=== PATIENT | female | born 1985 | race Caucasian/White ===

== ENCOUNTER 2018-02-02 16:05 | Inpatient (IN) ==
[2018-02-02] MEDS ORDERED: 0.9 % Sodium Chloride 1,000 ML IVC ONE ×4 (16:29→16:59)
--- NOTE | 2018-02-02 16:35 | Emergency Department Note ---
Disposition Clinical Impression: Axillary hidradenitis suppurativa, Tachycardia Sepsis Qualifiers: Sepsis type: sepsis due to unspecified organism Qualified Code(s): A41.9 - Sepsis, unspecified organism Cellulitis Qualifiers: Site of cellulitis: extremity Site of cellulitis of extremity: axilla Laterality: left Qualified Code(s): L03.112 - Cellulitis of left axilla Disposition: Admitted As Inpatient Condition: Good Time of Disposition: 17:12 Arrhythmia/Palpitations HPI - General Chief Complaint: ED Arrhythmia/Palpitations Stated Complaint: high HR Time Seen by Provider: 02/02/18 16:12 Source: patient, family Mode of arrival: ambulatory Limitations: no limitations Nursing Notes Reviewed: Yes Vital Signs Reviewed: Yes - History of Present Illness HPI Narrative: Patient notes a baseline tachycardia of about 110 bpm but increasing tachycardia and palpitations since this morning. She notes chills and diaphoresis without objective fever. She notes nausea, upset stomach, diarrhea. 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 She was recently prescribed colchicine - Related Data Home Medications Medication Instructions Recorded Confirmed Glimepiride [Amaryl] 4 mg PO BID 08/05/15 02/02/18 Metformin HCl [Glucophage] 1,000 mg PO BID 01/01/16 02/02/18 Lisinopril [Zestril] 20 mg PO DAILY 03/23/17 02/02/18 predniSONE [Prednisone] 15 mg PO DAILY 03/23/17 02/02/18 Atorvastatin [Lipitor] 40 mg PO HS 08/04/17 02/02/18 Bimatoprost [Lumigan] 1 drop OP 08/04/17 02/02/18 Calcium Carbonate [Calcium] 500 mg PO DAILY 08/04/17 02/02/18 Dronabinol [Marinol] 5 mg PO BID 08/04/17 02/02/18 Dulaglutide [Trulicity] 0.5 mg SQ QWEEK 08/04/17 02/02/18 Omeprazole [PriLOSEC] 20 mg PO DAILY 08/04/17 02/02/18 Oxycodone HCl/Acetaminophen 1 tab PO Q6H PRN 08/04/17 02/02/18 [Percocet 5-325 mg Tablet] BuPROPion XL (24 HR) [Wellbutrin 150 mg PO DAILY 02/02/18 02/02/18 Xl] Colchicine [Colcrys] 0.6 mg PO DAILY 02/02/18 02/02/18 Cyclobenzaprine HCl 10 mg PO HS PRN 02/02/18 02/02/18 Ergocalciferol (VITAMIN D2) 50,000 unit PO QWEEK 02/02/18 02/02/18 [Vitamin D2] Triamcinolone Acet 0.1% CRM 1 appl TP BID 02/02/18 02/02/18 [Kenalog] Previous Rx's Medication Instructions Recorded Clindamycin HCl 300 mg PO QID 7 Days #28 capsule 02/03/18 Allergies Allergy/AdvReac Type Severity Reaction Status Date / Time Sulfa (Sulfonamide Allergy Swelling Verified 02/02/18 16:12 Antibiotics) of Lip/Tongue/Throat All systems ED: reviewed and negative except as stated. Constitutional: Reports: chills Eyes: Reports: as per HPI ENT ED: Reports: as per HPI Cardiovascular: Reports: as per HPI Respiratory: Reports: as per HPI Gastrointestinal: Reports: nausea, diarrhea Genitourinary: Reports: as per HPI Musculoskeletal: Reports: as per HPI Integumentary: Reports: rash Neurological: Reports: as per HPI Psychiatric: Reports: as per HPI Endocrine: Reports: as per HPI Hematological/Lymphatic: Reports: as per HPI Allergic/Immunologic: Reports: as per HPI Past Medical History - Past Medical History Source: patient Medical history: Reports: diabetes, hypertension, renal disease Psychiatric history: Reports: anxiety, depression UTILITY PORTER history: Reports: no UTILITY PORTER history - Social History Smoking Status: Never smoker Smokeless Tobacco Status: No Alcohol use: Reports: rarely Drug use: Reports: marijuana Physical Exam - General Limitations: no limitations General appearance: alert - Head Head exam: atraumatic - Eye Eye exam: Present: normal appearance - ENT ENT exam: normal exam - Neck Neck exam: Present: normal inspection, full ROM - Chest Chest inspection: Present: normal inspection, symmetric chest wall rise - Respiratory Respiratory exam: Present: normal lung sounds bilaterally - Cardiovascular Cardiovascular exam: Present: tachycardia, normal heart sounds - Abdominal Exam Abdominal exam: Present: soft, Non-Tender - Neurological Exam Neurological exam: Present: alert, oriented X3, CN II-XII intact - Psychiatric Psychiatric exam: Present: normal affect, normal mood - Skin Skin exam: Present: warm, diaphoresis, other (superficial ulcerative lesions to bilateral LE. Increased induration and erythema to the left axilla. Cellulitis present) Course Course Narrative: Patient with multiple medical problems including diabetes, HSP, HS presents with tachycardia. She is diaphoretic on exam. She has an area of cellulitis to her left axilla. I am concerned about sepsis. Workup initiated Vital Signs Temperature 97.9 F 02/02/18 16:12 Pulse Rate 161 02/02/18 16:12 Respiratory Rate 22 02/02/18 16:12 Blood Pressure 127/93 02/02/18 16:12 O2 Sat by Pulse Oximetry 97 02/02/18 16:12 Temperature 97.9 F 02/03/18 11:46 Pulse Rate 127 02/03/18 11:46 Respiratory Rate 18 02/03/18 11:46 Blood Pressure 150/92 02/03/18 11:46 O2 Sat by Pulse Oximetry 98 02/03/18 11:46 Oxygen Delivery Oxygen Delivery Room Air Arrhythmia/Palpitations - Medical Records Medical records reviewed: Yes I reviewed the patient's medical records. - Lab Data Lab results reviewed: Yes I reviewed the patient's lab results. Result diagrams: 02/03/18 04:10 02/03/18 04:10 Lab Results 02/02/18 02/02/18 02/02/18 Range/Units 16:15 16:15 16:29 WBC 28.1 H (4.3-11.1) K/mcL RBC 4.87 (3.82-4.97) M/mcL Hgb 13.4 (11.5-15.4) g/dL Hct 42.6 (35.3-44.9) % MCV 87.5 (83.0-100.0) fL MCH 27.5 L (28.0-33.3) pg MCHC 31.5 L (31.6-35.5) g/dL RDW 12.8 (11.5-14.5) % Plt Count 541 H (140-400) K/mcL MPV 9.4 (9.4-12.4) fL Immature Gran % 0.6 (0-4) % Seg Neutrophils % 91.0 % Lymphocytes % 5.4 % Monocytes % 2.8 % Eosinophils % 0.0 % Basophils % 0.2 % Neutrophils # 25.6 H (1.6-8.9) K/mcL Lymphocytes # 1.5 (0.6-4.6) K/mcL Monocytes # 0.8 (0.0-1.3) K/mcL Eosinophils # 0.0 (0.0-0.6) K/mcL Basophils # 0.1 (0.0-0.2) K/mcL Reactive Lymphocytes Present A (Not Present) Platelet Estimate Slight increase H (Normal) Sodium 130 L (136-145) mEq/L Potassium 4.2 (3.5-5.1) mEq/L Chloride 95 L (98-107) mEq/L Carbon Dioxide 17 L (23-29) mEq/L BUN 10 (6-20) mg/dL Creatinine 0.64 (0.60-1.20) mg/dL Est GFR ( Amer) > 60 (> 60) Est GFR (Non-Af Amer) > 60 (> 60) BUN/Creatinine Ratio 16 (6-26) Glucose 457 H (70-105) mg/dL POC Glucose (70-99) mg/dL Calculated Osmolality 289 (280-300) Lactic Acid (0.5-2.2) mmol/L Calcium 10.3 (8.6-10.3) mg/dL Troponin I 0.03 (< 0.04) ng/mL TSH 1.207 (0.340-5.600) mcIU/mL Serum , Qual Negative (Negative) Urine Color (Yellow) Urine Clarity (Clear) Urine pH (5.0-8.0) pH Units Ur Specific [place] (1.010-1.025) Urine Protein (Neg-Trace) mg/dL Urine Glucose (UA) (Normal) mg/dL Urine Ketones (Negative) mg/dL Urine Blood (Negative) Urine Nitrite (Negative) Urine Bilirubin (Negative) Urine Urobilinogen (Normal) mg/dL Ur Leukocyte Esterase (Negative) Urine Microscopic RBC (0-3) per hpf Urine Microscopic WBC (0-3) per hpf Ur Squamous Epith Cells (None-Few) per lpf Urine Bacteria (None-Few) per hpf Hyaline Casts (None-Few) per lpf 02/02/18 02/02/18 02/02/18 Range/Units 16:32 16:33 17:11 WBC (4.3-11.1) K/mcL RBC (3.82-4.97) M/mcL Hgb (11.5-15.4) g/dL Hct (35.3-44.9) % MCV (83.0-100.0) fL MCH (28.0-33.3) pg MCHC (31.6-35.5) g/dL RDW (11.5-14.5) % Plt Count (140-400) K/mcL MPV (9.4-12.4) fL Immature Gran % (0-4) % Seg Neutrophils % % Lymphocytes % % Monocytes % % Eosinophils % % Basophils % % Neutrophils # (1.6-8.9) K/mcL Lymphocytes # (0.6-4.6) K/mcL Monocytes # (0.0-1.3) K/mcL Eosinophils # (0.0-0.6) K/mcL Basophils # (0.0-0.2) K/mcL Reactive Lymphocytes (Not Present) Platelet Estimate (Normal) Sodium (136-145) mEq/L Potassium (3.5-5.1) mEq/L Chloride (98-107) mEq/L Carbon Dioxide (23-29) mEq/L BUN (6-20) mg/dL Creatinine (0.60-1.20) mg/dL Est GFR ( Amer) (> 60) Est GFR (Non-Af Amer) (> 60) BUN/Creatinine Ratio (6-26) Glucose (70-105) mg/dL POC Glucose 294 H (70-99) mg/dL Calculated Osmolality (280-300) Lactic Acid 1.8 (0.5-2.2) mmol/L Calcium (8.6-10.3) mg/dL Troponin I (< 0.04) ng/mL TSH (0.340-5.600) mcIU/mL Serum , Qual (Negative) Urine Color Yellow (Yellow) Urine Clarity Cloudy A (Clear) Urine pH 6.0 (5.0-8.0) pH Units Ur Specific [place] 1.030 H (1.010-1.025) Urine Protein >=300 H (Neg-Trace) mg/dL Urine Glucose (UA) >=1000 H (Normal) mg/dL Urine Ketones 80 H (Negative) mg/dL Urine Blood Large H (Negative) Urine Nitrite Negative (Negative) Urine Bilirubin Negative (Negative) Urine Urobilinogen Normal (Normal) mg/dL Ur Leukocyte Esterase Trace H (Negative) Urine Microscopic RBC TNTC H (0-3) per hpf Urine Microscopic WBC 5-15 H (0-3) per hpf Ur Squamous Epith Cells Many H (None-Few) per lpf Urine Bacteria None Seen (None-Few) per hpf Hyaline Casts None Seen (None-Few) per lpf - EKG Data EKG attestation: Yes I reviewed and interpreted this EKG. EKG results narrative: Sinus tachycardia rate 157 P-R 121 QRS 76 QT/QTC 258/346. No acute ST segment elevation. Study compared to previous dated 11/13/15 Critical Care Time Critical Care Time: Yes Total Critical Care Time: 30 Attestation: The high probability of a clinically significant, sudden or life threatening deterioration of the [] system(s) required my full and direct attention, intervention and personal management. The aggregate critical care time was [] minutes. This time is in addition to time spent performing reported procedures but includes the following: [] Data Review and interpretation [] Patient assessment and monitoring of vital signs [] Documentation [] Medication orders and management Sepsis Reassessment Note - Evaluation Current Stage of Sepsis: sepsis Possible Source of Sepsis: skin/soft tissue - Focused Exam Date of Encounter: 02/02/18 Time of Encounter: 18:02 Vital Signs: see nurses note Respiratory Exam: Absent: respiratory distress Cardiovascular Exam: Present: tachycardia Capillary Refill: none Peripheral Pulse Strength: 3+ normal Peripheral Pulse Location: Radial Skin Exam: diaphoretic - Reassessment Comments Comments: Heart rate improving with IV fluids. Current rate now 120 down from 157. pulses and cap refill NOT checked. It was documented as such in order to complete this reassessment note
[2018-02-02 16:48] LABS: Basophils % 0.2 %; Immature Granulocytes % 0.6 % (0-4); Platelet Count 541 K/mcL (140-400); Red Cell Distribution Width 12.8 % (11.5-14.5)
[2018-02-02 16:49] LABS: Basophils # 0.1 K/mcL (0.0-0.2); Hematocrit 42.6 % (35.3-44.9); Hemoglobin 13.4 g/dL (11.5-15.4); Lymphocytes # 1.5 K/mcL (0.6-4.6); Lymphocytes % 5.4 %; Mean Corpuscular HGB Conc 31.5 g/dL (31.6-35.5); Mean Corpuscular Hemoglobin 27.5 pg (28.0-33.3); Mean Corpuscular Volume 87.5 fL (83.0-100.0); Mean Platelet Volume 9.4 fL (9.4-12.4); Monocytes # 0.8 K/mcL (0.0-1.3); Monocytes % 2.8 %; Red Blood Count 4.87 M/mcL (3.82-4.97)
[2018-02-02 16:50] LABS: Neutrophils # 25.6 K/mcL (1.6-8.9)
[2018-02-02 17:12] LABS: Reactive Lymphocytes Present (Not Present)
[2018-02-02] MEDS ORDERED: Piperacillin/Tazobactam 3.375 GM in 0.9 % Sodium Chloride Mini Bag 100 ML IVPB ONE (17:13)
[2018-02-02 17:16] LABS: Troponin I 0.03 ng/mL (< 0.04)
[2018-02-02 17:19] LABS: Bilirubin,Urine Negative (Negative); Blood,Urine Large (Negative); Clarity,Urine Cloudy (Clear); Color,Urine Yellow (Yellow); Glucose,Urine (UA) >=1000 mg/dL (Normal); Ketones,Urine 80 mg/dL (Negative); Leukocyte Esterase,Urine Trace (Negative); Nitrite,Urine Negative (Negative); Protein,Urine >=300 mg/dL (Neg-Trace); Urobilinogen,Urine Normal (Normal)
[2018-02-02 17:20] LABS: Bacteria,Urine None Seen per hpf (None-Few); Hyaline Casts,Urine None Seen per lpf (None-Few); RBC,Urine TNTC per hpf (0-3); Squamous Epithelial Cell,Urine Many per lpf (None-Few)
[2018-02-02 17:29] LABS: Thyroid Stimulating Hormone 1.207 mcIU/mL (0.340-5.600)
[2018-02-02 17:31] LABS: BUN/Creatinine Ratio 16 (6-26); Blood Urea Nitrogen 10 mg/dL (6-20); Calcium 10.3 mg/dL (8.6-10.3); Carbon Dioxide 17 mEq/L (23-29); Chloride 95 mEq/L (98-107); Glucose 457 mg/dL (70-105); Osmolality,Calculated 289 (280-300); Potassium 4.2 mEq/L (3.5-5.1); Sodium 130 mEq/L (136-145); eGFR For Non-African Americans > 60 (> 60)
[2018-02-02] MEDS ORDERED: Acetaminophen 325 MG TABLET PO PRN (20:42)
[2018-02-02] MEDS ORDERED: *HR* HYDROcodone/Acet 5/325 mg TABLET PO PRN (20:42)
[2018-02-02] MEDS ORDERED: Naloxone 0.4 MG/ML INJ IVP PRN (20:42)
[2018-02-02] MEDS ORDERED: *HR* OxyCODONE Immed Rel 5 MG TABLET PO PRN (20:42)
[2018-02-02] MEDS ORDERED: Latanoprost 2.5 ML BOTTLE BOTH EYES SCH (21:00)
[2018-02-02] MEDS: *HR* Glimepiride 4 MG TABLET PO SCH (21:24)
[2018-02-02] MEDS: *HR* Metformin 500 MG TABLET PO SCH (21:25)
[2018-02-02] MEDS: Triamcinolone Acet 0.1% CRM 15 GM TUBE TP SCH ×2 (22:06→23:04)
[2018-02-02] MEDS: Piperacillin/Tazobactam 3.375 GM in 0.9 % Sodium Chloride Mini Bag 100 ML IVPB SCH (23:05)
[2018-02-03 04:46] LABS: Basophils # 0.1 K/mcL (0.0-0.2); Basophils % 0.3 %; Eosinophils # 0.2 K/mcL (0.0-0.6); Eosinophils % 1.2 %; Hematocrit 32.6 % (35.3-44.9); Immature Granulocytes % 1.3 % (0-4); Lymphocytes # 2.1 K/mcL (0.6-4.6); Lymphocytes % 14.1 %; Mean Corpuscular HGB Conc 31.6 g/dL (31.6-35.5); Mean Corpuscular Hemoglobin 28.1 pg (28.0-33.3); Mean Corpuscular Volume 89.1 fL (83.0-100.0); Mean Platelet Volume 9.3 fL (9.4-12.4); Monocytes # 1.4 K/mcL (0.0-1.3); Monocytes % 9.6 %; Neutrophils # 10.9 K/mcL (1.6-8.9); Platelet Count 377 K/mcL (140-400); Red Blood Count 3.66 M/mcL (3.82-4.97); Red Cell Distribution Width 12.8 % (11.5-14.5); Segmented Neutrophils % 73.5 %
[2018-02-03 04:53] LABS: Hemoglobin 10.3 g/dL (11.5-15.4)
[2018-02-03 04:54] LABS: BUN/Creatinine Ratio 17 (6-26); Blood Urea Nitrogen 7 mg/dL (6-20); Calcium 8.4 mg/dL (8.6-10.3); Carbon Dioxide 21 mEq/L (23-29); Chloride 107 mEq/L (98-107); Glucose 177 mg/dL (70-105); Magnesium 1.3 mg/dL (1.6-2.6); Osmolality,Calculated 284 (280-300); Potassium 3.5 mEq/L (3.5-5.1); Sodium 136 mEq/L (136-145); eGFR For Non-African Americans > 60 (> 60)
[2018-02-03] MEDS ORDERED: *HR* Heparin 5,000 UNIT/ML VIAL SQ SCH (06:00)
--- NOTE | 2018-02-03 07:30 | Internal Med History&Physical ---
Date of Encounter: 02/02/18 Time of Encounter: 23:00 Internal Medicine - H&P: HPI Chief complaint: Infected HIDRADENITIS SUPPURATIVA Admitted From: Home Plans for Post Hospital Care: Home History of present illness: Ms. Maria is a 32 year old female. The patient has developed infection in the area of her left armpit in the last few days. She has been treated for HIDRADENITIS SUPPURATIVA for the last 10 years. She gets antibiotics average once a month. She does have off and on fever and chills. She feels better after she had received IV fluids in the emergency department. 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 She has been treated for vasculitis in lower legs for about 2 years. She is on prednisone. Dapsone was discontinued due to developing allergy. The patient was started on colchicine yesterday. She is about to start the IV Remicade. She is treated for type 2 diabetes mellitus, hypertension and hyperlipidemia. Review of systems: All 14 organ systems were reviewed by me with the patient. Positive and pertinent negative findings are listed above. The rest of organ systems is negative. Physical Exam: Skin: The patient has a typical changes for HIDRADENITIS SUPPURATIVA . They are located in her axillary regions, groins and on abdominal wall. There is quite a bit of malodorous discharge in the area of left armpit. Eyes: Sclera is white. There is no discharge from eyes. ENMT: Oral/pharyngeal mucosa is normal in appearance. There is no discharge from nose or ears. Respiratory: Normal breath sounds with no crackles and wheezes bilaterally. CV: Heart is regular with no gallop or murmur. GI: Abdomen is flat and soft with no palpable mass or visceromegaly. : There is no tenderness in patient's flanks bilaterally. Neuro exam: He has good strength in upper and lower extremities. He has normal eye movements. Psychiatric: He has normal affect. His thought process is appropriate to the situation. Past Med Surg Social Fam HX - Past Medical History Medical history: diabetes, hypertension, renal disease Additional medical history: hidradenitis, HSP vasculitis, Psychiatric history: anxiety, depression - Past Surgical History Additional surgical history: abcess removal - Social History Smoking Status: Never smoker Smokeless Tobacco Status: No Alcohol use: rarely Drug use: marijuana Internal Medicine - H&P: Meds Glimepiride [Amaryl] 4 mg PO BID 08/05/15 [History] Metformin HCl [Glucophage] 1,000 mg PO BID 01/01/16 [History] Lisinopril [Zestril] 20 mg PO DAILY 03/23/17 [History] predniSONE [Prednisone] 15 mg PO DAILY 03/23/17 [History] Atorvastatin [Lipitor] 40 mg PO HS 08/04/17 [History] Bimatoprost [Lumigan] 1 drop OP HS 08/04/17 [History] Calcium Carbonate [Calcium] 500 mg PO DAILY 08/04/17 [History] Dronabinol [Marinol] 5 mg PO BID 08/04/17 [History] Dulaglutide [Trulicity] 0.5 mg SQ QWEEK 08/04/17 [History] Omeprazole [PriLOSEC] 20 mg PO DAILY 08/04/17 [History] Oxycodone HCl/Acetaminophen [Percocet 5-325 mg Tablet] 1 tab PO Q6H PRN [History] BuPROPion XL (24 HR) [Wellbutrin XL] 150 mg PO DAILY 02/02/18 [History] Colchicine [Colcrys] 0.6 mg PO DAILY 02/02/18 [History] Cyclobenzaprine HCl [Cyclobenzaprine HCl] 10 mg PO HS PRN 02/02/18 [History] Doxycycline [Doxycycline] 100 mg PO BID 02/02/18 [History] Ergocalciferol (VITAMIN D2) [Vitamin D2] 50,000 unit PO QWEEK 02/02/18 [History] Triamcinolone Acet 0.1% CRM [Kenalog] 1 appl TP BID 02/02/18 [History] 3 Allergy/AdvReac Type Severity Reaction Status Date / Time Sulfa (Sulfonamide Allergy Swelling Verified 02/02/18 16:12 Antibiotics) of Lip/Tongue/Throat All Systems PM: A 10-system review of systems was performed and is negative for pertinent findings except as documented above in the HPI. - Constitutional Vitals: Temp Pulse Resp BP Pulse Ox 98.4 F 110 16 132/83 98 02/03/18 05:47 02/03/18 05:47 02/03/18 05:47 02/03/18 05:47 02/03/18 05:47 Internal Med - H&P Results - Labs CBC & Chem 7: 02/03/18 04:10 02/03/18 04:10 Labs: Short CBC 02/03/18 Range/Units 04:10 WBC 14.8 H (4.3-11.1) K/mcL Hgb 10.3 L D (11.5-15.4) g/dL Hct 32.6 L (35.3-44.9) % Plt Count 377 (140-400) K/mcL Neutrophils # 10.9 H (1.6-8.9) K/mcL BMP 02/03/18 04:10 Sodium 136 Potassium 3.5 Chloride 107 Carbon Dioxide 21 L BUN 7 Creatinine 0.41 L Glucose 177 H Calcium 8.4 L - Assessment and plan (1) Cellulitis of axilla, left Current Visit: Yes Status: Acute Assessment and plan: She is on IV vancomycin and IV Zosyn. Cultures are pending. (2) Hidradenitis suppurativa Current Visit: Yes Status: Acute Assessment and plan: It is associated with recurrent infections. It is associated with vasculitis of lower extremities. I outlined that treatments in HPI. She will continue outpatient follow-up with dermatology and rheumatology. (3) Type 2 diabetes mellitus Current Visit: Yes Status: Acute Qualifiers: Diabetes mellitus assisted insulin use: without assisted use Diabetes mellitus complication status: without complication Qualified Code(s): E11.9 - Type 2 diabetes mellitus without complications - Time Spent With Patient Total time spent is greater than 50% in coordination of care (as documented) at patient's floor/unit and/or counseling patient: Greater than 35 minutes (40 minutes)
[2018-02-03] MEDS: Piperacillin/Tazobactam 3.375 GM in 0.9 % Sodium Chloride Mini Bag 100 ML IVPB SCH ×2 (07:39→15:12)
[2018-02-03] MEDS: Colchicine 0.6 MG TABLET PO SCH ×2 (07:40→07:46)
[2018-02-03] MEDS: *HR* Metformin 500 MG TABLET PO SCH (07:40)
[2018-02-03] MEDS: *HR* Glimepiride 4 MG TABLET PO SCH (07:42)
[2018-02-03] MEDS: Triamcinolone Acet 0.1% CRM 15 GM TUBE TP SCH (07:43)
[2018-02-03] MEDS ORDERED: Lisinopril 20 MG TABLET PO SCH (09:00)
[2018-02-03] MEDS ORDERED: BuPROPion XL (24 HR) 150 MG TABLET PO SCH (09:00)
[2018-02-03] MEDS ORDERED: predniSONE 5 MG TABLET PO SCH (09:00)
[2018-02-03 11:53] VITALS: BP 150/92
--- NOTE | 2018-02-03 15:04 | Discharge Summary ---
- NOTES TO OUTPATIENT PROVIDER Notes to Outpatient Provider: routine hosp f/u. Recommend cardiology referral for echocardiogram and further workup of tachycardia. Orders not resulted at time of discharge: Pending orders 02/03/18 US extremity nonvascular LT [US] Routine 02/04/18 08:00 Vancomycin,Trough Timed Date of Encounter: 02/03/18 Time of Encounter: 14:59 - Discharge Diagnosis (1) Axillary hidradenitis suppurativa Priority: Primary Status: Acute (2) Sepsis Priority: Primary Status: Acute Qualifiers: Sepsis type: sepsis due to unspecified organism Qualified Code(s): A41.9 - Sepsis, unspecified organism (3) Tachycardia Priority: Primary Status: Acute Hospital course: Ms. Maria is a 32 year old female with PMH vasculitis, hidradenitis suppurativa , DM and HTN presented to [facility] on 02/02/2018 with c/o fever and tachycardia. She was found to be in sepsis secondary to left axilla cellulitis and was admitted for IV ATB. WBC 24K on admission and dropped to 14K at discharge. Her sx's improved with IV fluids and IV ATB and patient requested discharge home. Patient follows with dermatology and rheumatology closely for her vasculitis and hidradenitis suppurativa. Patient was recently seen by her finisher fine diamond dies and was started on doxycycline; appears to failed outpatient treatment she presented with sepsis. Of note patient has been dealing with this for over 10 years and says she feels back to baseline and cannot care for her wound/ cellulitis at home as she has done before. No fever or chills. She does have some leukocytosis which appears to be chronic and overall improved. She is agreeable to stay for left axilla ultrasound but does not want to wait for results. Says she would come back to the hospital if an abscess was noted and she would require IV ATB. Regarding her tachycardia, patient reports baseline heart rate is in the 110s and she suspects increased heart rate is secondary to anxiety and so she would do better at home. Wells score with low probability for PE. Patient is declining echocardiogram at this time. Recent outpatient cultures on 01/31/18 with no growth. Advised on ATB compliance and chlorhexidine gluconate bathing. Advised to return to ER if fever recurs or symptoms worsen. Discharge discussed with: patient - Time Spent with Patient Total time spent providing and/or coordinating discharge services: - Discharge Medications Prescriptions: Clindamycin HCl 300 mg PO QID 7 Days #28 capsule Home Medications: Glimepiride [Amaryl] 4 mg PO BID 08/05/15 [History] Metformin HCl [Glucophage] 1,000 mg PO BID 01/01/16 [History] Lisinopril [Zestril] 20 mg PO DAILY 03/23/17 [History] predniSONE [Prednisone] 15 mg PO DAILY 03/23/17 [History] Atorvastatin [Lipitor] 40 mg PO HS 08/04/17 [History] Bimatoprost [Lumigan] 1 drop OP HS 08/04/17 [History] Calcium Carbonate [Calcium] 500 mg PO DAILY 08/04/17 [History] Dronabinol [Marinol] 5 mg PO BID 08/04/17 [History] Dulaglutide [Trulicity] 0.5 mg SQ QWEEK 08/04/17 [History] Omeprazole [PriLOSEC] 20 mg PO DAILY 08/04/17 [History] Oxycodone HCl/Acetaminophen [Percocet 5-325 mg Tablet] 1 tab PO Q6H PRN [History] BuPROPion XL (24 HR) [Wellbutrin Xl] 150 mg PO DAILY 02/02/18 [History] Colchicine [Colcrys] 0.6 mg PO DAILY 02/02/18 [History] Cyclobenzaprine HCl 10 mg PO HS PRN 02/02/18 [History] Ergocalciferol (VITAMIN D2) [Vitamin D2] 50,000 unit PO QWEEK 02/02/18 [History] Triamcinolone Acet 0.1% CRM [Kenalog] 1 appl TP BID 02/02/18 [History] Clindamycin HCl 300 mg PO QID 7 Days #28 capsule 02/03/18 [Rx] Allergies/Adverse Reactions: 3 Allergy/AdvReac Type Severity Reaction Status Date / Time Sulfa (Sulfonamide Allergy Swelling Verified 02/02/18 16:12 Antibiotics) of Lip/Tongue/Throat Date of admission: 02/02/18 20:42 Primary care physician: Kaye Piedra Discharging clinician: Allyssa Ugalde Anticipated date of discharge: 08/03/18 - Constitutional Vitals: Temp Pulse Resp BP Pulse Ox 97.9 F 127 18 150/92 98 02/03/18 11:46 02/03/18 11:46 02/03/18 11:46 02/03/18 11:46 02/03/18 11:46 General appearance: Present: A&O X 3, morbidly obese, pleasant - Head Head exam: Present: atraumatic, normocephalic - Eye Eye exam: Present: PERRL, conjuntiva pink, sclera anicteric Pupils: Present: PERRL - Neck Neck exam general surgery: Present: supple, trachea midline. Absent: lymphadenopathy - Respiratory Respiratory exam: Present: CTAB. Absent: accessory muscle use, rales, rhonchi, wheezes - Cardiovascular Cardiovascular exam: Present: RRR, +S1, +S2. Absent: diastolic murmur, gallop, rubs, systolic murmur - GI/Abdominal GI/Abdominal exam: Present: normal bowel sounds, soft, no peritoneal signs. Absent: distended, tenderness - Extremities Exam Extremities exam: Present: warm, radial pulses palpable and symmetrical. Absent : calf tenderness, cyanotic, pedal edema - Neurological Exam Neurological exam: Present: CN II-XII intact, oriented X3, no focal deficits. Absent: pronater drift, facial droop, speech deficit - Skin Skin exam: Present: dry Additional comments: typical changes for HIDRADENITIS SUPPURATIVA, located in her axillary regions, groins and on abdominal wall. There is quite a bit of malodorous discharge to left axilla - Patient Status Disposition: Home, Self-Care Condition: Good Functional capacity at discharge: independent ambulation Overall status at discharge: patient is back to baseline - Discharge Instructions Instructions: Cellulitis (DC), Clindamycin (By mouth) Follow Up With: Kaye Piedra MD [Primary Care Provider] - 02/08/18 2:30 pm - Diet and Activity Activity: increase activity as tolerated Diet: advance to your usual diet
[2018-02-03] MEDS ORDERED: Aminoglycoside Consult 1 EACH MC ONE (17:23)
--- NOTE | 2018-02-04 08:19 | Electrocardiograph Report ---
[facility] Test Date: 2018-02-02 Pat Name: Eloisa Maria Department: 104 Room: 3B64 Gender: F Dietary Internship: [facility] : 1985 Requested By: Mason Mota Order Number: [id number] Reading MD: Tyra Cabezas Measurements Intervals [place] Rate: 157 P: 64 TN: 121 QRS: 14 QRSD: 76 T: 71 QT: 258 QTc: 346 Interpretive Statements SINUS TACHYCARDIA, POSSIBLE ATRIAL FLUTTER NONSPECIFIC T-WAVE ABNORMALITY ABNORMAL RHYTHM ECG Electronically Signed On 02-04-2018 8:17:46 EDT by Tyra Cabezas
== END 2018-02-03 17:24 | disposition home or self-care (01) | DRG 872 ==
LOC: EMEROO 16:05 → 3BNU 16:05
PROVIDERS: ADMIT Internal Medicine; ATTEND Internal Medicine